=== PATIENT | male | born 1950 | race Caucasian/White ===

== ENCOUNTER 2019-08-18 10:16 | Outpatient (CLI) | payer MEDICARE, OTHER ==
--- NOTE | 2019-08-18 12:13 | RAD ---
LEFT THUMB 2 VIEWS: Date: 08/18/2019 HISTORY: Swelling left thumb. FINDINGS: Osteoarthrosis changes are noted of the thumb, particularly the interphalangeal joint. No acute fract ure or dislocation. IMPRESSION: Osteoarthrosis changes left thumb. No fracture or dislocation. POS: [facility]
== END 2019-08-18 10:17 | disposition home or self-care (01) ==
LOC: RAD-FITCH 10:16
PROVIDERS: ATTEND Family Medicine
DX: R22.32 Localized swelling, mass and lump, left upper limb (principal); M19.042 Primary osteoarthritis, left hand

== ENCOUNTER 2023-01-11 11:35 | Outpatient (CLI) | payer MEDICARE, OTHER | END 2023-01-11 11:36 | disposition home or self-care (01) | LOC: SCSRAD 11:35 | PROVIDERS: ATTEND Physician Assistant | DX: R05.3 Chronic cough (principal) | CPT/HCPCS: 71046 ==